=== PATIENT | male | born 1960 | race African-American/Black ===

== ENCOUNTER 2019-06-11 05:57 | Inpatient (IN) ==
--- NOTE | 2019-05-29 09:04 | PAT Medication Instructions ---
Medication Instructions Date of Service May 29, 2019 Home Medications celecoxib 200 mg PO BID cyclobenzaprine 10 mg PO HS ASK your surgeon for instructions celecoxib 200 mg PO BID Take evening before surgery cyclobenzaprine 10 mg PO HS THEN NOTHING TO EAT OR DRINK AFTER MIDNIGHT Other Notes If you have any questions please call us at [phone] or [phone] or [phone] or [phone]
--- NOTE | 2019-05-30 10:29 | Anesthesiology Consultation ---
Date of Service May 30, 2019 Assessment & Plan (1) Encounter for pre-operative examination: Chart Review Chart Review: Pending: Refer to Additional Notes / Consult section (PCP clearance appt 06/02 ) and Patient seen in Pre Admission Testing Awaiting surgeon ordered PCP clearance (06/02) Teaching & Discussion Pre-Anesthesia Teaching/Discussion Notes: Instructed NPO after midnight before surgery,except medications with 15 cc of water. Medication instructions provided according to the PAT guidelines. History Surgery Operation Date: 06/11/19 07:45 Proposed Procedures p L4-S1 Decompression and Fusion with Spinal Cord Monitoring - Asher Mcconnell DO Height/Weight Height: 6 ft 1 in Weight: 108 kg Allergies Allergy/AdvReac Type Severity Reaction Status Date / Time No Known Allergies Allergy Verified 06/11/19 06:23 Medications Home Medications Medication Instructions Recorded Confirmed Last Taken celecoxib 200 mg PO BID 05/22/19 06/11/19 06/04/19 cyclobenzaprine 10 mg PO HS 05/22/19 06/11/19 06/10/19 21:00 Active Medications Generic Name Dose Route Start Last Admin Trade Name Freq PRN Reason Stop Dose Admin Acetaminophen 1,000 mg 06/11/19 06:00 06/11/19 07:05 Tylenol PO 06/11/19 18:00 1,000 mg PREOP RUTHANN Administration Celecoxib 200 mg 06/11/19 06:00 06/11/19 07:05 Celebrex PO 06/11/19 18:00 200 mg PREOP RUTHANN Administration Gabapentin 600 mg 06/11/19 06:00 06/11/19 07:05 Neurontin PO 06/11/19 18:00 600 mg PREOP RUTHANN Administration Lactated Ringer's 1,000 mls @ 15 mls/hr 06/11/19 06:00 06/11/19 07:00 Lr IV 06/12/19 05:59 15 mls/hr .Q24H RUTHANN Administration Past Medical History Medical History Asthma NO INHALERS- BREATHING STABLE- NO ISSUES Benign essential HTN Per records Chronic back pain TO RIGHT LEG Impaired fasting glucose Per records Exercise / Class Metabolic Activity II 4-5 Yardwork/Stairs/Walk up hill (NO CHEST PAIN OR SOB WITH ONE FLIGHT OF STAIRS- DOES HAVE INCREASED BACK PAIN (PRIOR TO BACK PAIN ONE YEAR AGO- PATIENT RUNNING 12 MILES)) Past Family History Family History Father Family history of diabetes mellitus Past Surgical History Surgical History History of colonoscopy Past Anesthesia History No Hx of Anesthesia Complications and No Family Hx of Anesthesia Complications History of PONV No Hx of PONV and No Hx of Motion Sickness Social History Smoking Status: Never smoker Do You Dip or Chew Tobacco: No Hx Alcohol Use: Yes Alcohol type: beer alcohol intake frequency: a few times a week Hx Substance Use: No Review of Systems Patient denies chest pain, shortness of breath, dyspnea on exertion, reflux, cough, wheezing, palpitations. No hx of seizures, stroke, [place], apnea/snoring. No hx of blood clots or blood transfusions No recent steroid use Physical Exam Vital Signs Last Vital Signs Temp 36.7 C 06/11/19 06:25 Pulse 76 06/11/19 06:25 Resp 18 06/11/19 06:25 BP 136/90 06/11/19 06:25 Pulse Ox 95 06/11/19 06:25 VITALS BP 148/93 P 66 TEMP 98.0 SP02 98% RESP 16 Constitutional no acute distress ENMT Mouth: no TMJ clicking, no chipped teeth and no loose teeth Thyromental Distance: > or= 3.5 Finger Breadths (3.5) Mallampati Class: III One molar missing Neck neck extension not limited Respiratory normal respiratory effort; no respiratory distress Auscultation: lungs clear to auscultation bilaterally; no diminished lung sounds and no wheezes Cardiovascular Rate/Rhythm: regular rate and regular rhythm Heart Sounds: no murmur Vessels: no carotid bruit Extremities: no edema Musculoskeletal Spine: + pain with cervical ROM (minimal pulling discomfort ); normal cervical ROM Neurologic moves all extremities Psychiatric Orientation: alert Testing Laboratory Results 05/30/19 10:45 05/30/19 10:45 PT 10.7 Seconds (9.0-12.0) 05/30/19 10:45 INR 1.0 (0.9-1.1) 05/30/19 10:45 APTT 28.8 Seconds (21.0-31.0) 05/30/19 10:45 Urine Color Yellow 05/30/19 Unknown Urine Appearance Clear (Clear) 05/30/19 Unknown Urine pH 7.0 (4.5-7.5) 05/30/19 Unknown Ur Specific [place] 1.012 (1.000-1.030) 05/30/19 Unknown Urine Protein Trace (Negative) H 05/30/19 Unknown Urine Glucose (UA) Negative (Negative) 05/30/19 Unknown Urine Ketones Negative (Negative) 05/30/19 Unknown Urine Nitrite Negative (Negative) 05/30/19 Unknown Ur Leukocyte Esterase Negative (Negative) 05/30/19 Unknown Urine WBC (Auto) 0 /hpf (0-5) 05/30/19 Unknown Urine RBC (Auto) 0-4 /hpf (0-4) 05/30/19 Unknown U Hyaline Cast (Auto) 0 /lpf (0-5) 05/30/19 Unknown U Epithel Cells (Auto) 5-10 /lpf (0-5) H 05/30/19 Unknown Urine Bacteria (Auto) Negative (Negative) 05/30/19 Unknown Blood Type O Positive 06/11/19 06:25 Antibody Screen NEGATIVE 06/11/19 06:25 Electrocardiogram Date: 05/30/19 Findings: + NSR @ (71) LAFB. Incomplete RBBB. Non specific T wave abnormality (EKG forwarded to PCP for review at PCP clearance appt) Chest X-Ray Date: 05/30/19 Findings: + NAD
--- NOTE | 2019-05-30 11:25 | XRay Report ---
XR chest Pre-admission PA/Lat CLINICAL HISTORY: Preoperative evaluation. COMPARISON STUDY: Chest radiograph March 04, 2010. FINDINGS: Lung volumes are normal. Lungs are clear. There is no pneumothorax or pleural effusion. Car diac size is normal. Mediastinal contours are normal. There is no evidence for pulmonary edema. IMPRESSION: No acute cardiopulmonary findings. ACT 112: Negative or not required by law. Electronically signed by: Brian Marquez M.D. 05/30/2019 11:24 AM
[2019-05-30 11:32] LABS: Basophils # (auto) 0.01 K/uL (0-0.2); Basophils % (auto) 0.2 %; Eosinophils # (auto) 0.04 K/uL (0-0.5); Eosinophils % (auto) 0.8 %; Hematocrit (blood only) 43.4 % (42-52); Hemoglobin 14.8 g/dL (14.0-18.0); Immature Granulocytes # (auto) 0.01 K/uL (0.00-0.02); Immature Granulocytes % (auto) 0.2 %; Lymphocytes # (auto) 1.23 K/uL (1.2-3.4); Lymphocytes % (auto) 23.6 %; Mean Corpuscular Hemoglobin 26.8 pg (25-34); Mean Corpuscular Hgb Conc 34.1 g/dL (32-36); Mean Corpuscular Volume 78.6 fL (80-100); Mean Platelet Volume 9.5 fL (7.4-10.4); Monocytes # (auto) 0.47 K/uL (0.11-0.59); Neutrophils # (auto) 3.45 K/uL (1.4-6.5); Neutrophils % (auto) 66.2 %; Platelet Count 206 K/uL (130-400); RDW Coefficient of Variation 14.4 % (11.5-14.5); RDW Standard Deviation 40.8 fL (36.4-46.3); Red Blood Count 5.52 M/uL (4.7-6.1); White Blood Count 5.21 K/uL (4.8-10.8)
[2019-05-30 11:34] LABS: Appearance Urine Clear (Clear); Bacteria Urine Automated Negative (Negative); Bilirubin Urine Negative (Negative); Blood Urine Negative (Negative); Cast Urine Automated 0 /lpf (0-5); Color Urine Yellow; Glucose Urine UA Negative (Negative); Ketones Urine Negative (Negative); Leukocyte Esterase Urine Negative (Negative); Nitrite Urine Negative (Negative); Protein Urine Trace (Negative); RBC Urine Automated 0-4 /hpf (0-4); Specific Gravity Urine 1.012 (1.000-1.030); Urobilinogen Urine Negative (Negative); WBC Urine Automated 0 /hpf (0-5)
[2019-05-30 11:44] LABS: Partial Thromboplastin Ratio 1.1; Partial Thromboplastin Time 28.8 Seconds (21.0-31.0); Prothrombin Time 10.7 Seconds (9.0-12.0)
[2019-05-30 13:32] LABS: BUN Creatinine Ratio 20.3 (10-20); Calcium 9.7 mg/dl (8.5-10.1); Creatinine Clr Calc Pharmacy 108.3 ml/min; Est GFR (Non-African American) 86.3; Potassium 4.4 mmol/L (3.5-5.1)
--- NOTE | 2019-05-30 19:04 | Electrocardiogram Report ---
Test Reason : Blood Pressure : / mmHG Vent. Rate : 071 BPM Atrial Rate : 071 BPM P-R Int : 192 ms QRS Dur : 124 ms QT Int : 378 ms P-R-T Axes : 074 -55 087 degrees QTc Int : 410 ms Normal sinus rhythm Left anterior fascicular block Incomplete right bundle branch block Nonspecific T wave abnormality Abnormal ECG No previous ECGs available Confirmed by Wojciech Boles ([id number]) on 05/30/2019 7:04:33 PM Referred By: Asher Mcconnell Confirmed By:Clarence Boles
[2019-06-11] MEDS ORDERED: CEFAZOLIN 2000MG 2,000 MG/15 ML SYR IV SCH (06:00)
[2019-06-11] MEDS ORDERED: GABAPENTIN 600 MG DOSE PO SCH (06:00)
[2019-06-11] MEDS ORDERED: LR 15ML/HR IV SCH (06:00)
[2019-06-11] MEDS ORDERED: ACETAMINOPHEN 500 MG TAB PO SCH (06:00)
[2019-06-11] MEDS ORDERED: CeleBREX 200 MG CAP PO SCH (06:00)
[2019-06-11] MEDS ORDERED: BACITRACIN INJ 50,000 UNIT VIAL ONE (06:57)
[2019-06-11] MEDS ORDERED: BUPIVACAINE/EPINEPHRINE 0.5% MPF 1:200,000 10 ML VIAL ONE (06:58)
[2019-06-11] MEDS ORDERED: PROPOFOL IV EMULSION 10 MG/ML 20 ML VIAL IV ONE (07:04)
[2019-06-11] MEDS ORDERED: LIDOCAINE HCL 2% 2 ML VIAL/AMP(20MG/ML) INFIL ONE (07:04)
[2019-06-11] MEDS ORDERED: DEXAMETHASONE SOD INJ 4 MG/ML VIAL ONE (07:04)
[2019-06-11] MEDS ORDERED: ROCURONIUM BROMIDE 10 MG/ML 5 ML VIAL ONE (07:04)
[2019-06-11] MEDS ORDERED: NEOSTIGMINE METHYLSULFATE 1 MG/ML 10ML VIAL ONE (07:04)
[2019-06-11] MEDS ORDERED: PHENYLEPHRINE 100MCG/ML 5ML SYR ONE (07:04)
[2019-06-11] MEDS ORDERED: ePHEDrine sulfate 50 MG/ML SYR ONE (07:04)
[2019-06-11] MEDS ORDERED: ONDANSETRON INJ 2 MG/ML 2 ML VIAL ONE (07:04)
[2019-06-11] MEDS ORDERED: GLYCOPYRROLATE 0.2 MG/ML VIAL ONE ×2 (07:04→08:34)
[2019-06-11] MEDS ORDERED: LARYING-O-JET KIT (LTA) ONE (07:04)
[2019-06-11] MEDS ORDERED: MIDAZOLAM HCL 1 MG/ML 2ML VIAL ONE (07:05)
[2019-06-11] MEDS ORDERED: fentaNYL citrate 100 MCG/2 ML VIAL ONE ×2 (07:05)
[2019-06-11] MEDS ORDERED: HYDROmorphone INJ 2 MG/ML SYR/VIAL ONE (07:16)
--- NOTE | 2019-06-11 07:28 | History & Physical Bridge Note ---
Date of Service June 11, 2019 History & Physical Bridge Note I have examined the patient, reviewed the History & Physical and in the interval since the performance of the History & Physical I have noted the following changes of clinical significance: no changes noted
--- NOTE | 2019-06-11 07:29 | History & Physical Report ---
Date of Service June 11, 2019 Assessment & Plan (1) Neurogenic claudication due to lumbar spinal stenosis: L4-S1 decompression fusion Present on Admission?: Yes History of Present Illness Chief Complaint: Back and bilateral leg pain Primary Care Provider: Sreedhar Wright This is a 58-year-old male who presents with chronic persistent back and bilateral leg pain. After failing extensive course of nonoperative care is here for surgical intervention. 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 Results & Data Vital Signs (Past 12 Hours) Vital Signs Temp Pulse Resp BP Pulse Ox 06/11/19 06:25 36.7 C 76 18 136/90 95
[2019-06-11] MEDS ORDERED: LABETALOL HCL IV 5 MG/ML 20ML IV PRN (07:41)
[2019-06-11] MEDS ORDERED: ONDANSETRON INJ 2 MG/ML 2 ML VIAL IV PRN ×2 (07:41→12:58)
[2019-06-11] MEDS ORDERED: ATROPINE SULFATE 0.1 MG/ML 10ML SYR IV PRN (07:41)
[2019-06-11] MEDS ORDERED: ALBUTEROL 0.083% NEBU SOLN 3 ML VIAL INH PRN (07:41)
[2019-06-11] MEDS ORDERED: FLOSEAL HEMOSTATIC MATRIX 10ML TOP ONE (10:12)
[2019-06-11] MEDS ORDERED: PHENYLEPHRINE HCL 10 MG/ML VIAL ONE (10:23)
--- NOTE | 2019-06-11 10:26 | Operative Report ---
Post Operative Report Pre & Post Diagnosis Operation Date: 06/11/19 07:45 Pre-Op Diagnosis: Lumbar Spondylosis with radiculopathy Spondylolisthesis L4-5 Post-Op Diagnosis: Lumbar Spondylosis with radiculopathy Spondylolisthesis L4-5 I identified the patient and participated in the time-out.: Yes Procedure Operation Date: 06/11/19 07:45 Actual Procedures #1 lumbar decompression with bilateral medial facetectomies and foraminotomies L3-4, L4-5 and L5-S1. #2 posterior spinal fusion L4-5 L5-S1. #3 placement posterior instrumentation L4-5 L5-S1. #4 interbody fusion L4-5 L5-S1. #5 placement of titanium cage 12 x 26 mm at L4-5 and 11 x 26 mm at L5-S1. #6 placement locally harvested morselized autograft in the posterior lateral gutters. #7 patient infuse collagen sponge, master graft in the posterior gutters and ostial amp and interbody space. Surgeon Asher Mcconnell, DO Body And Frame Technician Janice Rich Estimated Blood Loss 700 Findings See Below The patient is 6 foot 1 inches tall weighing over 109 kg with a BMI in excess of 31. This combined with an EBL of over 700 cc created significant technical difficulty. He did require our deepest retractors and longest instruments in order to perform his procedure. This added at least 40% increase to the operative time. Specimens None Indications This is a 58-year-old male who presents with above-mentioned diagnosis after failed extensive course of nonoperative care is here for surgical intervention. Description of Procedure Patient was met with identified informed consent obtained. Patient was then taken to the operative suite underwent an patient placed in prone position the Sam table on top of the Tin frame. All bony prominences well-padded eyes inspected to ensure no external pressure placed upon them. This point the lumbar spine was prepped and draped in a normal sterile fashion. Sharp dissection with the assistance of Bovie cautery was performed down to and exposing the lamina and transverse processes of L for L5 and sacral ala bilaterally. From caudal cephalad fashion complete laminectomy of L5 L4 and partial laminectomy of L3 was performed including bilateral medial facetectomies and foraminotomies addressing severe spinal stenosis. Obvious instability L4-5 was also identified. Pedicle screws were then placed in L4-L5 and S1 levels bilaterally with assistance of fluoroscopy and appropriate size kris placed. By way of a transforaminal approach on the right a complete discectomy of L5-S1 was performed endplates curetted to subcortical bleeding bone and an 11 x 26 mm titanium cage filled with osteo-bone graft tapped in position. Then proceeded L4-[address] of a trans-foramen approach on the right complete discectomy of was performed endplates curetted to subcortical bleeding bone and a 12 x 26 mm titanium cage filled with osteo-bone graft tapped in position. The rods were then compressed locked into final position bilaterally. The transverse processes of L4-L5 and sacral ala burred to subcortical bleeding bone. Infuse collagen sponge master graft local autograft was then placed in the posterior gutters. 15 round IAN drain inserted. The incision was then closed with 1 Vicryl in the fascia 2-0 Vicryl subcutaneously and 4 Monocryl for final skin closure. Steri-Strip sterile dressings placed. Patient will continue to PACU stable condition. Please note Janice Rich was present at the entire procedure involved in patient positioning complex portions of the surgery and final skin closure. Lastly spinal cord monitoring was utilized that procedure no changes noted. I attest to the content of the Intraoperative Record and any orders documented therein. Any exceptions are noted below.
--- NOTE | 2019-06-11 10:28 | Fluoroscopy Report ---
FL lumbar spine 2-3V CLINICAL HISTORY: L4-S1 DECOMPRESSION AND FUSION COMPARISON STUDY: MRI dated 12/10/2018 FLUOROSCOPY TIME: 31 seconds. NUMBER OF FLUOROSCOPIC IMAGES: 2 FINDINGS: 2 intraoperative fluoroscopic spot images reveal postsurgical changes of discectomies and i nterbody fusions at the L4-5 and L5 5-S1 levels. There is L4-S1 posterior spinal fusion with pedicle screws. IMPRESSION: Postsurgical changes of an L4-S1 spinal decompression and fusion. ACT 112: Negative or not required by law. Electronically signed by: Earl Crockett M.D. 06/11/2019 10:27 AM
[2019-06-11] MEDS: HYDROmorphone INJ 1 MG/ML SYRINGE IV PRN ×4 (10:49→11:05)
--- NOTE | 2019-06-11 12:00 | Anesthesiology Progress Note ---
Date of Service June 11, 2019 Anesthesia Post Procedure Vital Signs Vital Signs: Temp Pulse Pulse Resp BP Pulse Ox 06/11/19 11:45 36.5 C 71 20 102/91 99 06/11/19 11:35 36.5 C 71 20 102/91 99 06/11/19 11:25 36.5 C 72 19 103/74 99 06/11/19 11:15 36.5 C 74 12 104/62 100 06/11/19 11:05 36.5 C 75 15 118/79 100 06/11/19 10:55 83 24 112/71 100 06/11/19 10:45 85 13 109/82 100 06/11/19 10:39 36.7 C 72 12 117/72 100 06/11/19 06:25 36.7 C 76 18 136/90 95 Pain Intensity Back: Pain Intensity: 5 Transfer of Care Handoff Completed per policy Notes Mental Status: alert / awake / arousable and participated in evaluation Patient Amnestic to Procedure: Yes Nausea / Vomiting: adequately controlled Pain: adequately controlled Airway Patency, RR, SpO2: stable & adequate BP & HR: stable & adequate Hydration State: stable & adequate Anesthetic Complications: no major complications apparent and Pt Satisfied with anesthetic care
[2019-06-11] MEDS ORDERED: bisacodyL 10 MG SUPP PR PRN (12:34)
[2019-06-11] MEDS ORDERED: ACETAMINOPHEN 1,000 MG/100 ML VIAL IV PRN (12:34)
[2019-06-11] MEDS ORDERED: SOD PHOSPHATE/SOD BIPHOSPHATE ENEMA 132 ML BTL PR PRN (12:53)
[2019-06-11] MEDS ORDERED: FAMOTIDINE 20 MG TAB PO PRN (12:54)
[2019-06-11] MEDS ORDERED: DO NOT ADMINISTER PNEUMOCOCCAL VACCINE PRN (12:54)
[2019-06-11] MEDS ORDERED: ALUMINUM/MAGNESIUM SUSP 30 ML UDC PO PRN (12:54)
[2019-06-11] MEDS ORDERED: LORazepam 0.5 MG/1 ML VIAL IV PRN (12:55)
[2019-06-11] MEDS ORDERED: DO NOT ADMINISTER FLU VACCINE PRN (12:55)
[2019-06-11] MEDS ORDERED: OXYCODONE HCL IR 5 MG TAB (IMMEDIATE RELEASE) PO PRN (12:57)
[2019-06-11] MEDS ORDERED: NALOXONE HCL 0.4 MG/1 ML VIAL/CARP IV PRN (12:57)
[2019-06-11] MEDS ORDERED: METOCLOPRAMIDE HCL INJ 5 MG/ML 2 ML VIAL IV PRN (12:58)
[2019-06-11] MEDS ORDERED: PROMETHAZINE HCL 12.5 MG in SODIUM CHLORIDE 0.9% 50 ML IV PRN (12:58)
[2019-06-11] MEDS ORDERED: LORazepam 0.5 MG TAB PO PRN (12:59)
[2019-06-11] MEDS ORDERED: MAGNESIUM HYDROXIDE SUSP 30 ML UDC PO PRN (12:59)
[2019-06-11] MEDS ORDERED: TRAMADOL HCL 50 MG TABLET PO PRN (13:00)
[2019-06-11] MEDS ORDERED: ONDANSETRON 4 MG OD TAB PO PRN (13:01)
[2019-06-11] MEDS ORDERED: HYDROmorphone INJ 1 MG/ML SYRINGE IV PRN (13:01)
[2019-06-11] MEDS ORDERED: HYDROmorphone INJ 0.5 MG/0.5 ML SYR IV PRN (13:02)
[2019-06-11] MEDS: LACTATED RINGER'S 1,000 ML IV SCH ×2 (13:11→19:03)
[2019-06-11] MEDS: KETOROLAC 30 MG/ML VIAL IV SCH ×2 (13:12→20:50)
[2019-06-11] MEDS: CEFAZOLIN 2000MG 2,000 MG/15 ML SYR IV SCH ×2 (15:41→23:26)
[2019-06-11] MEDS: DOCUSATE SODIUM/SENNA 50/8.6MG TAB PO SCH (20:50)
[2019-06-12] MEDS: KETOROLAC 30 MG/ML VIAL IV SCH ×2 (01:42→07:23)
[2019-06-12] MEDS: LACTATED RINGER'S 1,000 ML IV SCH (01:42)
[2019-06-12 05:30] LABS: Eosinophils # (auto) 0.02 K/uL (0-0.5); Eosinophils % (auto) 0.2 %; Hemoglobin 10.6 g/dL (14.0-18.0); Immature Granulocytes # (auto) 0.02 K/uL (0.00-0.02); Immature Granulocytes % (auto) 0.2 %; Lymphocytes # (auto) 1.34 K/uL (1.2-3.4); Lymphocytes % (auto) 14.3 %; Mean Corpuscular Hemoglobin 26.8 pg (25-34); Mean Corpuscular Hgb Conc 34.2 g/dL (32-36); Mean Corpuscular Volume 78.5 fL (80-100); Mean Platelet Volume 9.3 fL (7.4-10.4); Monocytes # (auto) 1.11 K/uL (0.11-0.59); Monocytes % (auto) 11.9 %; Neutrophils # (auto) 6.86 K/uL (1.4-6.5); Neutrophils % (auto) 73.4 %; Platelet Count 179 K/uL (130-400); RDW Coefficient of Variation 14.6 % (11.5-14.5); RDW Standard Deviation 41.6 fL (36.4-46.3); Red Blood Count 3.95 M/uL (4.7-6.1); White Blood Count 9.35 K/uL (4.8-10.8)
[2019-06-12] MEDS: POLYETHYLENE (MIRALAX) 17 GM PACK PO SCH ×4 (05:39→23:40)
[2019-06-12 06:06] LABS: BUN Creatinine Ratio 17.6 (10-20); Calcium 8.2 mg/dl (8.5-10.1); Creatinine Clr Calc Pharmacy 121.2 ml/min; Est GFR (Non-African American) 95.8
--- NOTE | 2019-06-12 07:30 | Anesthesiology Progress Note ---
Date of Service June 12, 2019 Anesthesia Post Procedure Vital Signs Vital Signs: Temp Pulse Pulse Resp BP BP Pulse Ox 06/12/19 03:17 36.5 C 72 15 93/58 L 99 06/11/19 23:31 36.5 C 68 16 112/74 98 06/11/19 20:12 36.8 C 73 16 129/71 94 06/11/19 15:23 36.4 C L 71 16 113/71 98 06/11/19 14:16 83 18 102/63 98 06/11/19 13:06 78 16 130/70 97 06/11/19 12:41 36.7 C 75 18 126/83 98 06/11/19 12:10 36.9 C 76 18 125/75 98 06/11/19 11:45 36.5 C 71 20 102/91 99 06/11/19 11:35 36.5 C 71 20 102/91 99 06/11/19 11:25 36.5 C 72 19 103/74 99 06/11/19 11:15 36.5 C 74 12 104/62 100 06/11/19 11:05 36.5 C 75 15 118/79 100 06/11/19 10:55 83 24 112/71 100 06/11/19 10:45 85 13 109/82 100 06/11/19 10:39 36.7 C 72 12 117/72 100 Pain Intensity Back: Pain Intensity: 0 Notes Mental Status: alert / awake / arousable and participated in evaluation Nausea / Vomiting: adequately controlled Pain: adequately controlled Airway Patency, RR, SpO2: stable & adequate BP & HR: stable & adequate Hydration State: stable & adequate
--- NOTE | 2019-06-12 12:22 | Orthopedic Progress Note ---
Date of Service June 12, 2019 Assessment & Plan (1) Neurogenic claudication due to lumbar spinal stenosis: This time we will continue physical therapy monitor his IAN output anticipate discharge home in the next few days. Present on Admission?: Yes Admission and Anticipated Discharge Date Admission Date: June 11, 2019 Subjective Back pain controlled leg pain improved Physical Exam Physical Exam: Patient is good strength testing appears comfortable. Results & Data ([facility]) Vital Signs (Past 12 Hours) Vital Signs Temp Pulse Resp BP Pulse Ox 06/12/19 11:08 36.6 C 80 16 136/77 96 06/12/19 03:17 36.5 C 72 15 93/58 L 99
[2019-06-12] MEDS: DOCUSATE SODIUM/SENNA 50/8.6MG TAB PO SCH (20:05)
[2019-06-12] MEDS: ACETAMINOPHEN 500 MG TAB PO PRN (22:08)
[2019-06-13] MEDS: POLYETHYLENE (MIRALAX) 17 GM PACK PO SCH ×3 (05:32→18:00)
[2019-06-13] MEDS: DEXAMETHASONE SOD PHOSPHATE 8 MG in SYRINGE 0 ML IV SCH (07:36)
[2019-06-13] MEDS: ACETAMINOPHEN 500 MG TAB PO PRN ×2 (07:39→15:40)
--- NOTE | 2019-06-13 08:57 | Orthopedic Progress Note ---
Date of Service June 13, 2019 Assessment & Plan (1) Neurogenic claudication due to lumbar spinal stenosis: This time we will maintain his IAN drain continue activity as tolerated anticipate discharge home tomorrow. Present on Admission?: Yes Admission and Anticipated Discharge Date Admission Date: June 11, 2019 Subjective Back pain controlled leg symptoms markedly improved Physical Exam Physical Exam: On exam is good strength testing appears comfortable. Results & Data ([facility]) Vital Signs (Past 12 Hours) Vital Signs Temp Pulse Resp BP BP Pulse Ox 06/13/19 07:17 36.5 C 77 18 120/73 96 06/13/19 00:08 36.9 C 80 16 112/66 95
[2019-06-13] MEDS: DOCUSATE SODIUM/SENNA 50/8.6MG TAB PO SCH (20:24)
[2019-06-14] MEDS: POLYETHYLENE (MIRALAX) 17 GM PACK PO SCH ×2 (00:05→06:18)
[2019-06-14] MEDS: ACETAMINOPHEN 500 MG TAB PO PRN ×2 (01:59→10:19)
--- NOTE | 2019-06-14 07:45 | Discharge Summary ---
Date of Service June 14, 2019 Admission HPI Per Admitting Provider This is a 58-year-old male who presents with chronic persistent back and bilateral leg pain. After failing extensive course of nonoperative care is here for surgical intervention. Principal Diagnosis Lumbar spinal stenosis with neurogenic claudication Discharge Data Allergies Allergy/AdvReac Type Severity Reaction Status Date / Time No Known Allergies Allergy Verified 06/11/19 06:23 Consultations 06/11/19 12:34 Consult Case Management - Discharge Planning Routine Procedures Performed Operation Date: 06/11/19 07:45 Actual Procedures p L4-S1 Decompression and Fusion with Spinal Cord Monitoring(Not Applicable) - Asher Mcconnell DO Ordered Studies 06/11/19 07:45 FL fluoroscopy <1hr Routine [place] lumbar spine 2-3V Routine Hospital Course (1) Neurogenic claudication due to lumbar spinal stenosis: Patient underwent lumbar decompression fusion tolerated well second orthopedic for possibly. Postop day 1 he was up and ambulating progressed to postop day #2 on postop day 3 excellent strength testing IAN drain decreasing probably. Pain well controlled. Subsequently discharged home. Discharge orders and instructions from the chart for further review. Total Time Total Time Spent Total Time Spent (In Minutes): 20 minutes Discharge Plan Discharge Items Patient Disposition: Home - Self-Care Reason For Visit: LUMBAR SPONDYLOSIS WITH RADICULOPATHY Discharge Diagnosis: Lumbar spinal stenosis with radiculopathy Activity: As commented below Non-emergency contact: Primary Care Provider Call non-emergency contact if: you have any medication questions Follow-up/Referrals: Sreedhar Wright [Primary Care Provider] - Diet: Regular Addtl Attending Provider Instructions: ACTIVITY RECOMMENDATIONS: SELF CARE INSTRUCTIONS AFTER THORACIC/LUMBAR FUSIONS 1. You may walk to your tolerance. It is good exercise for your legs and back. Expect some back and intermittent leg aches and pains. 2. You may perform "counter-top" level activities (make a sandwich, tianna with a project, etc.). 3. No bending or lifting of more than 10 pounds or back twisting of any nature (roll like a log when turning in bed). 4. You may ride in a car for 20-30 minutes at a time. No driving until after your first visit with your doctor. 5. Frequent changes of position and restricting sitting to 30 minutes at a time will help limit the amount of back spasms and stiffness you may experience. 6. You may discontinue the use of ambulatory aids (cane, crutches, etc.) once your strength and confidence allow. 7. You may certified athletic trainer the shower and let water strike your incision when you arrive home at least once daily. Do not take a tub bath, sit in a hot tub or go into a swimming pool until after your first recheck in the office. SPECIAL CARE INSTRUCTIONS: VERY IMPORTANT TO READ AND REVIEW A. Your surgical incision has been closed with a cosmetic suture under the skin that will dissolve in about 6 weeks. In 14 days, you can use a pair of clean scissors and cut the suture that is left outside of the skin at the ends of your incision. 1. The small skin tapes can be removed 7 days after surgery if they have not fallen off by that point. 2. You may keep the wound open to air as much as possible to promote healing after post-op day number 5 unless told otherwise by your doctor. 3. If you think the wound looks like it is becoming infected (redness or worsening drainage) and/or you are experiencing fever, chill or worsening back pain and muscle spasms, contact the office so that we may evaluate you as soon as possible. B. Complications are uncommon, but please contact us if you have any signs or symptoms of: 1. wound infection (fever higher than 102.5 degrees F, redness, separation of wound, drainage, or increasing pain from the incision) 2. blood clots in legs (pain, swelling, redness and warmth in legs) 3. urinary tract infection (fever higher than 102.5 degrees F, burning upon urination or increased frequency of urination) 4. nerve problems (inability to walk on your toes or heels, numbness, loss of bowel or bladder control) 5. any other symptoms that concern you C. Please call the office at if you have any concerns or questions about your operation or recovery. D. No smoking! Smoking drastically decreases the chance of a solid fusion. E. Do not take any anti-inflammatory medications (Indocin, Advil, Motrin, Aspirin, Naprosyn, etc.) as these may inhibit the chance of a solid fusion. Tylenol is okay to take for pain. MANAGING PAIN AFTER SPINAL SURGERY 1. Narcotic medication is intended for short-term use and will be provided for surgical pain. Surgical pain usually lasts for a period of 4-6 weeks. Narcotic medication includes Percocet, Vicodin, Darvocet, Tylenol #3 or Lortab. 2. Longer-term pain is more appropriately treated with non-narcotic medication such as Tylenol ES. 3. Muscle spasm is not appropriately treated with narcotics. Muscle relaxers such as Soma, Flexeril or Skelaxin can be used along with Tylenol ES. 4. Remember that we all live with some "aches and pains". This is not unusual or uncommon after an injury or as we get older. a. Back pain is expected and may include muscle spasms for 4 to 6 weeks after surgery. The pain should gradually improve. If the pain worsens for no apparent reason, please contact the office. b. Intermittent leg pain may also be experienced and should not be concerned about unless it worsens for no apparent reason. If so, please contact the office. 5. We will provide appropriate medication within the normal guidelines of their prescribed use. We will also be very cautious and aware of potential abuse and extended duration of patients' medication needs. a. Pain medications are for your comfort and to assist with sleep and rest so that the tissue can heal. They are not provided in order to return to normal activity and should not be used through the day. To do so or worsening pain at night can result from ongoing tissue damage and development of tolerance to the prescribed medicine. 6. Please allow 2-3 days to process refills. Prescriptions will not be mailed but must be picked up at the office. FOLLOW UP VISIT: Keep your scheduled follow-up appointment. Any questions, please call the office at . Pending Studies at Discharge: No Stand-Alone Forms: My [facility] [place], Smoking Cessation Medications and DC Order Prescriptions: New oxycodone 5 mg tablet 5 mg PO Q6H PRN (Reason: pain, severe) Qty: 30 RF: 0 tramadol 50 mg tablet 50 mg PO Q6H PRN (Reason: pain, moderate) Qty: 30 RF: 0 Continued cyclobenzaprine 10 mg Tablet 10 mg PO HS RF: 0 Discontinued celecoxib 200 mg Capsule 200 mg PO BID RF: 0 Discharge Orders: Discharge Order (Routine); Ordered 06/14/19 Ordered By: Asher Mcconnell Admission Data Admit Date/Time: 06/11/19 10:49 Attending Provider: Asher Mcconnell Admit Provider: Asher Mcconnell Primary Care Provider: Sreedhar Wright
[2019-06-14] MEDS: DEXAMETHASONE SOD PHOSPHATE 8 MG in SYRINGE 0 ML IV SCH (10:04)
== END 2019-06-14 14:25 | disposition home or self-care (01) | DRG 455 ==
LOC: ASU 05:57 → 3E 10:49